=== PATIENT | female | born 1980 | race Caucasian/White ===

== ENCOUNTER 2021-03-03 23:54 | Emergency (ER) | payer SELFPAY ==
[~2021-03-03] VITALS: Ht 167.6 cm; Wt 76.0 kg
[2021-03-04 00:51] LABS: ALBUMIN 4.2 g/dL (3.2-5.0); ALKALINE PHOSPHATASE 64 u/l (38-126); ANION GAP 12 (6-22 (CALC)); BILIRUBIN, TOTAL 0.6 mg/dL (0.0-1.4); BUN 18 mg/dL (7-17); BUN/CREATININE RATIO 17 (12-20 (CALC)); CARBON DIOXIDE 28 mmol/l (22-30); CHLORIDE 101 mmol/l (95-108); CPK 61 u/l (30-165); CREATININE 1.1 mg/dL (0.5-1.0); GFR 54 ML/MIN (>=60 (CALC)); GFR FOR AFR.AMER. > 60 ML/MIN (>=60 (CALC)); POTASSIUM 3.8 mmol/l (3.5-5.1); SGOT/AST 18 u/l (14-36); SODIUM 137 mmol/l (137-146); TOTAL PROTEIN 7.3 g/dL (6.3-8.2)
[2021-03-04 01:00] LABS: MYOGLOBIN 51 ng/mL (0 - 62)
[2021-03-04 01:04] LABS: HEMATOCRIT 48.7 % (37.0-47.0); HEMOGLOBIN 16.3 g/dl (12.0-16.0); IMMATURE GRANULOCYTES 0.4 % (0.0-5.0); MEAN CELL VOLUME 94.6 fL CALC (80.0-100.0); MEAN CORPUSCULAR HGB 31.7 pG CALC (26.0-32.0); MEAN CORPUSCULAR HGB CONC 33.5 g/dL CAL (32.0-36.0); NEUT# 4.87 thou/uL (2.00-7.15); RED BLOOD COUNT 5.15 mill/uL (4.20-5.60); RED CELL DISTRI WIDTH 12.2 % (11.5-15.5)
[2021-03-04] MEDS ORDERED: CYCLOBENZAPRINE10 MG PO (01:35)
[2021-03-04] MEDS ORDERED: LORTAB 1010 MG PO (01:35)
[2021-03-04 01:39] VITALS: BP 101/56
== END 2021-03-04 01:41 | disposition home or self-care (01) | DRG 552 ==
LOC: ED 23:54
PROVIDERS: Emergency Medicine
DX: M51.17 Intervertebral disc disorders with radiculopathy, lumbosacral region (principal)